=== PATIENT | female | born 1990 | race Hispanic/Latino ===

== ENCOUNTER 2017-05-19 15:50 | Outpatient (CLI) | payer BC | END 2017-05-19 15:51 | disposition home or self-care (01) | LOC: BICULT 15:50 | PROVIDERS: ATTEND Family Medicine | DX: N64.4 Mastodynia (principal); R05 Cough | CPT/HCPCS: 71046 ==

== ENCOUNTER 2018-04-11 20:00 | Inpatient (IN) | payer BC, MEDICAID, OTHER, SELFPAY ==
--- NOTE | 2018-04-11 16:12 | PDOC.FPROB ---
FMR OB H&P: HPI - History of Present Illness Chief Complaint: Elective induction Indentification: 27 yo History of Present Illness: This is a 27 yo at 39.3 wks by LMP consistent with 10.5wk US who presents to L&D for an elective induction. She denies contractions, LOF, vaginal bleeding, SOB, chest pain, nausea, or vomiting. She reports FM. Primary Care Physician: Roxie Hernandez DO FMR OB H&P: Current - Care : 3 Para: 2001 Gestational age: 39.2 Due date: 04/16/18 Dating Criteria: LMP c/w 10.5 wk US Course/Complications: Glucose intolerance Obesity - OB Labs Blood type: O RH: positive Antibody Screen: negative HIV: negative RPR: negative HepBsAg: negative Rubella: immune Gonorrhea: negative Chlamydia: negative 1 hour gtt: 144 3 hour GTT: 89/162/101/87 A1c: 5.5 GBS: negative H&H: 11.2/31.4 (03/01/18) Platelets: 137 (03/01/18) - First Trimester Ultrasound First trimester: 1 IUP FHR 168 No abnormalities noted FMR OB H&P: History - Past Medical History PMH: None - OB History OB History: First born at 41wks, , 7 lb 11oz, at [facility] Second born at 40wks, , 8lb, 5oz, at [place] - [employer]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[employer] SPECIALIST History: none - Surgical History Sx History: none - Social History Social History: none - Family History Family History: MGF has Diabetes Pt's mother has HTN FMR OB H&P: Medications - Current Home Medications: Medication Instructions Recorded Confirmed Type Vitamin 1 tab PO DAILY #0 tab 01/11/15 04/12/18 Rx Allergies/Adverse Reactions: Allergies Allergy/AdvReac Type Severity Reaction Status Date / Time No Known Allergies Allergy Verified 04/12/18 07:59 FMR OB H&P: ROS - Review of Systems General: denies: fever/chills, weight/appetite/sleep changes, night sweats Eyes: denies: eye pain, vision changes ENT: denies: nasal congestion, rhinorrhea Cardiovascular: denies: chest pain, palpitation Respiratory: denies: cough, congestion, shortness of breath Gastrointestinal: denies: abdominal pain, indigestion Genitourinary (Female): denies: dysuria, vaginal discharge, vaginal pain, contractions Musculoskeletal: denies: pain, stiffness Neurologic: denies: numbness, syncope Integumentary: denies: itching, rash Psychological: denies: depression, anxiety FMR OB H&P: Physical Exam - Physical Exam General: NAD, awake, alert and oriented HEENT: MMM Neck: supple, FROM Chest: non-tender to palpation, no lesions Heart: RRR, normal S1/S2, no murmurs/rubs/gallops, pulses present, other (trace edema) General: CTAB, no respiratory distress, good air movement, no wheezing Abdomen: soft, gravid, fundus(cm), non-tender Musculoskeletal: pulses present, FROM in all four extremities Neurological: cranial nerves II through XII intact Skin: capillary refill <2 seconds Lymphatic: no purpura, no petechia Psychiatric: intact recent and remote memory - Pelvic Exam SVE: 1/0/-3 Rojas score: 2 FMR OB H&P: A/P - Problem List (1) Term Current Visit: No Status: Acute Code(s): Z34.80 - ENCOUNTER FOR SUPRVSN OF NORMAL , UNSP TRIMESTER (2) Glucose intolerance Current Visit: No Status: Acute Code(s): E74.39 - OTHER DISORDERS OF INTESTINAL CARBOHYDRATE ABSORPTION (3) Obesity (BMI 30.0-34.9) Current Visit: No Status: Acute Code(s): E66.9 - OBESITY, UNSPECIFIED Disposition: This is a 27 yo female at 39.2 wk by LMP c/w 10.5 wk US Term , elective induction -Admit to L&D -LR 125 ml/hr -Initial check: 0/-3 -Rojas score: 2 -Begin Cytotec Glucose intolerance Obesity Discussion: Date/Time: 04/11/18 160 This H&P was discussed with Dr. Fernández who agree with the above documentation and plan. Signature: Harlan Eng DO PGY-1
[2018-04-12] MEDS: Lactated Ringer's 1,000 ML IV SCH ×2 (07:40→23:49)
[2018-04-12 07:58] VITALS: BMI 35.6
[2018-04-12] MEDS ORDERED: Acetaminophen 500 MG TAB PO PRN (08:09)
[2018-04-12] MEDS ORDERED: Ondansetron PF 4 MG/2 ML Vial IVP PRN ×2 (08:09→23:47)
[2018-04-12] MEDS ORDERED: Promethazine HCl 25 MG/ML VIAL IM PRN ×2 (08:09→23:47)
[2018-04-12] MEDS ORDERED: Lidocaine 1% (PF) 30 ML VIAL SC PRN (08:09)
[2018-04-12] MEDS ORDERED: Misoprostol 100 MCG TAB ONE (08:39)
[2018-04-12] MEDS: Misoprostol 100 MCG TAB VAG SCH ×3 (08:45→23:55)
[2018-04-12 09:15] LABS: Hemoglobin 11.2 g/dL (12.0-16.0); Mean Corpuscular HGB CONC 33.5 g/dL (32.0-36.0); Mean Corpuscular Hemoglobin 27.9 pg (27.0-31.0); Mean Corpuscular Volume 83.5 fL (78.0-98.0); Mean Platelet Volume 10.4 fL (7.4-10.4); Platelet Count 131 thou/uL (130-400); Red Blood Cell (RBC) Count 4.02 mill/uL (4.20-5.40); White Blood Cell (WBC) Count 7.4 thou/uL (4.8-10.8)
[2018-04-12 10:04] LABS: HBSAg Index 0.19 S/CO (0-0.99); Hep B Surf Ag Non-Reactive S/CO (NonReactive); Syphilis Antibody Nonreactive (Nonreactive); Syphilis Antibody Index 0.05 S/CO (<1.00 Non-Reactive)
--- NOTE | 2018-04-12 13:03 | PDOC.LDPN ---
Labor & Delivery Progress Note - Subjective Subjective: comfortable, vaginal pressure - Objective Vital signs reviewed and normal: yes General: NAD, resting Uterine fundus: non tender SVE: FHT: category 1, variability present (moderate, accels present) [place] contractions every: 2-3 minutes - Assessment (1) Term Code(s): Z34.80 - ENCOUNTER FOR SUPRVSN OF NORMAL , UNSP TRIMESTER Current Visit: No Status: Acute (2) Glucose intolerance Code(s): E74.39 - OTHER DISORDERS OF INTESTINAL CARBOHYDRATE ABSORPTION Current Visit: No Status: Acute (3) Obesity (BMI 30.0-34.9) Code(s): E66.9 - OBESITY, UNSPECIFIED Current Visit: No Status: Acute -: This is a 27 yo female at 39.2 wk by LMP c/w 10.5 wk US Term , elective induction -LR 125 ml/hr -Current check: -We are starting pitocin at this time Glucose intolerance Obesity Dr. Hernandez saw this pt and we discussed their treatment and plan
[2018-04-12] MEDS ORDERED: NS w/ Oxytocin 10 units 500 ML ONE (13:07)
[2018-04-12] MEDS ORDERED: NS w/ Oxytocin 10 units 500 ML IV SCH (13:30)
[2018-04-12] MEDS ORDERED: Bupivacaine PF 0.5% 30 ML VIAL ONE (15:00)
[2018-04-12] MEDS ORDERED: Lidocaine 2% MPF 10 ML AMP (For Epidural Use) ONE (15:00)
--- NOTE | 2018-04-12 16:34 | PDOC.LDPN ---
Labor & Delivery Progress Note - Subjective Subjective: painful contractions - Objective Vital signs reviewed and normal: yes General: breathing through contractions SVE: /-2 FHT: category 1 [place] contractions every: q3-4 min -: IUP@39 weeks for elective induction Pitocin @ 6mu/min Category 1 FHTs Continue current care; titrate pitocin.
--- NOTE | 2018-04-12 20:39 | PDOC.LDPN ---
Labor & Delivery Progress Note - Subjective Subjective: no concerns - Objective Vital signs reviewed and normal: yes General: NAD Dilation: 3 Effacement: 50% (60) Station: -1 FHT: category 1 (158/mod/+accel/no decel) Plan: pitocin for augmentation -: IUP@39 weeks for elective induction Category 1 FHTs GBS negative Cervical check unchanged since last check. On pitocin with ctx q2-3 min. Will continue with pit and recheck in 2 hours, at that time will determine plan for evening.
[2018-04-12] MEDS ORDERED: Fentanyl 4 mcg/Bup 0.1% Cadd 100 ML ONE (22:49)
[2018-04-12] MEDS ORDERED: Lidocaine 1.5%/Epinephrine 1:200,000 5 ML AMPUL IJ ONE (23:07)
[2018-04-12] MEDS ORDERED: Communication Order-Pharmacy FS SCH (23:45)
[2018-04-12] MEDS ORDERED: Fentanyl 4 mcg/Bupivacaine 0.1% Cassette 100 ML EPIDURAL SCH (23:45)
[2018-04-12] MEDS ORDERED: Acetaminophen 325 MG TAB PO PRN (23:47)
[2018-04-12] MEDS ORDERED: diphenhydrAMINE 50 MG/ML VIAL IVP PRN (23:47)
[2018-04-12] MEDS ORDERED: Lactated Ringer's 500 ML IV PRN (23:47)
[2018-04-12] MEDS ORDERED: ePHEDrine/0.9% NaCl/PF SYRINGE 50 mg/10 ml SLOW IVP PRN (23:47)
[2018-04-12] MEDS ORDERED: Naloxone HCl 0.4 mg/ml Vial IVP PRN ×2 (23:47)
[2018-04-12] MEDS ORDERED: Hydrocerin (Eucerin) Cream 120 gm Jar TOP PRN (23:47)
[2018-04-13] MEDS: NS / Oxytocin 40 units/1000ml 1,000 ML IV PRN ×2 (01:42→02:49)
[2018-04-13] MEDS ORDERED: Misoprostol 200 MCG TAB ONE (01:42)
[2018-04-13] MEDS: Lactated Ringer's 1,000 ML IV SCH (02:48)
[2018-04-13] MEDS: Misoprostol 100 MCG TAB VAG SCH ×2 (02:48→06:01)
[2018-04-13] MEDS ORDERED: Benzocaine/Menthol 20-0.5% 60 ML CAN TOP PRN (06:01)
[2018-04-13] MEDS ORDERED: Milk Of Magnesia 30 ML UDCUP PO PRN (06:01)
[2018-04-13] MEDS ORDERED: Lanolin Ointment 7 GM TUBE TOP PRN (06:01)
[2018-04-13] MEDS ORDERED: Adacel (T-DAP) 0.5 ML SYRINGE IM ONE (06:01)
[2018-04-13] MEDS ORDERED: Bisacodyl 10 MG SUPP PR PRN (06:01)
[2018-04-13] MEDS ORDERED: diphenhydrAMINE 25 MG CAP PO PRN (06:01)
--- NOTE | 2018-04-13 06:33 | PDOC.OPDEL ---
OB Operative/Delivery Note Delivery Dr/Surgeon: Hari/ Pre-Delivery Diagnosis: elective induction Procedure/Post Delivery Dx: spontaneous vaginal delivery Weeks gestation: 39 Anesthesia: epidural - Additional Findings/Plan Placenta delivered: spontaneous Repaired Obstetrical Laceration: none Estimated blood loss: 233 Compilations/Other Findings: Delivering Physician: Hari Attending: Procedure: Spontaneous Vaginal Delivery Anesthesia: epidural QBL: 233 ml Pre-op Diagnosis: 1. Term intrauterine in labor 2. Obesity Post-op Diagnosis: 1. Term intrauterine , delivered 2. same as above Indications: A 27 y/o female presents to L&D for elective induction Delivery Note: This is 27yo F @ 39.3 wks who delivered a viable F infant at 0133 on 04/13/18. Following an uneventful antepartum course, a vigorous F was delivered over an intact perineum in the occipitoanterior position. Anterior Shoulder and then remainder of the body delivered. Single nuchal cord delivered through. The head was held down and mouth and nares were bulb suctioned. Cord clamped after delayed cord clamping and cut and cord blood collected. Placenta delivered intact in the Packer presentation with a 3 vessel cord noted. Fundal massage was performed and the fundus was firm. The cervix and vagina were inspected and found to be free of lacerations. Infant went to nursery in good condition for routine care. Apgars were 9/9 at 1 & 5 minutes, respectively. Patient tolerated delivery well and went to after routine recovery/care. Post delivery plan: routine recovery
[2018-04-13] MEDS: Ibuprofen 800 MG TAB PO SCH ×3 (08:28→21:40)
[2018-04-13] MEDS: Prenatal Vitamin 1 TAB PO SCH (09:20)
[2018-04-13] MEDS: Docusate Calcium (SURFAK) 240 MG CAP PO SCH ×2 (09:20→21:41)
[2018-04-13] MEDS: Ferrous Sulfate 325 MG TAB PO SCH ×2 (09:21→18:07)
[2018-04-14] MEDS: Ibuprofen 800 MG TAB PO SCH ×2 (05:50→13:12)
[2018-04-14 08:14] VITALS: BP 103/64; TEMP 98.5
[2018-04-14] MEDS: Docusate Calcium (SURFAK) 240 MG CAP PO SCH (08:54)
[2018-04-14] MEDS: Prenatal Vitamin 1 TAB PO SCH (08:54)
[2018-04-14] MEDS: Ferrous Sulfate 325 MG TAB PO SCH ×2 (08:55→17:24)
--- NOTE | 2018-04-14 10:45 | PDOC.PP ---
Post Progress Note Post Day #: 1 Subjective: Patient doing well this AM. No significant overnight events. Patient does endorse some back pain where epidural was placed, but does not want anything for the pain. Lochia is minimal. Tolerating PO. Ambulating. PO intake tolerated: yes Flatus: yes Ambulation: yes Vital Signs (12 hours) Temp Pulse Resp BP BP Pulse Ox 04/14/18 07:00 98.5 F 76 18 103/64 98 04/14/18 00:39 98.2 F 78 16 98/62 100 Weight Weight 88.451 kg - Physical Examination General: NAD Cardiovascular: no m/r/g, RRR Respiratory: clear to auscultation bilaterally, non-labored breathing Abdominal: + bowel sounds, lochia (minimal), no distention, appropriately TTP Fundus firm & at: below umbilicus Neurological: no gross focal deficits Psychiatric: A&Ox3, normal affect Result Diagrams: 04/12/18 08:55 Additional Labs: Post Labs Blood Type O POSITIVE 04/12/18 08:55 Hep Bs Antigen Non-Reactive S/CO (NonReactive) 04/12/18 08:55 (1) Term delivered Code(s): O80 - ENCOUNTER FOR FULL-TERM UNCOMPLICATED DELIVERY Status: Acute (2) (spontaneous vaginal delivery) Code(s): O80 - ENCOUNTER FOR FULL-TERM UNCOMPLICATED DELIVERY Status: Acute - Assessment/Plan 27 year old delivered TAGA F at 1:33 on 04/13 via 1. Term , delivered - No complications - - Routine PP care - Follow up in [address] [facility] - Lochia minimal - Uncomplicated antepartum course - GBS negative Dispo: Plan for d/c home this afternoon pending 's 36 HOL bili Addendum - Attending - Attending Attestation Date/Time: 04/14/18 1117 I personally evaluated the patient and discussed the management with Dr. Jin I agree with the History, Examination, Assessment and Plan documented above with any addition or exceptions noted below- Patient without complaints. Ambulating/voiding. Afebrile VSS. A/P: 1) PPD#1 s/p - doing well. Plan to d/ c home later today.
== END 2018-04-14 17:01 | disposition home or self-care (01) | DRG 807 ==
LOC: L&D 04-12 06:52 → 3SE 04-13 08:24
PROVIDERS: ADMIT Family Medicine; ATTEND Family Medicine
PROC: 10E0XZZ Delivery of Products of Conception, External Approach (ICD-10-PCS; principal; 2018-04-13)
PROC: 3E0P7VZ Introduction of Hormone into Female Reproductive, Via Natural or Artificial Opening (ICD-10-PCS; 2018-04-13)
PROC: 4A1HXCZ Monitoring of Products of Conception, Cardiac Rate, External Approach (ICD-10-PCS; 2018-04-13)
DX: O99.214 Obesity complicating childbirth (principal); Z37.0 Single live birth; E74.39 Other disorders of intestinal carbohydrate absorption; O99.284 Endocrine, nutritional and metabolic diseases complicating childbirth; E66.9 Obesity, unspecified; Z3A.39 39 weeks gestation of pregnancy; O76 Abnormality in fetal heart rate and rhythm complicating labor and delivery; O69.81X0 Labor and delivery complicated by cord around neck, without compression, not applicable or unspecified
CPT/HCPCS: 36415; 51702; 76815; 85027; 86780; 86850; 86900; 86901; 87340; J2001; J3490; S0020